=== PATIENT | female | born 1945 | race Caucasian/White ===

== ENCOUNTER → 2022-08-30 10:46 | Outpatient (CLI) | payer MEDICARE, BC, SELFPAY ==
--- NOTE | 2022-08-30 | DI.MRI.S_ITS ---
PROCEDURE: MR LUMBAR SPINE WO CON INDICATIONS: Radiculopathy, lumbosacral region TECHNIQUE: Noncontrast sagittal T1 spin echo and T2 fast echo, sagittal STIR, and T2 fast spin echo through the lumbar spine. In cases with scoliosis, additional coronal T2 fast spin echo may be performed. COMPARISON: None. FINDINGS: Image quality: Diagnostic. Susceptibility artifacts from lumbar spine fusion hardware are seen. Alignment and Curvature: There is 6 mm retrolisthesis of L1 on L2 and 8 mm retrolisthesis of T12 on L1. 5 mm anterolisthesis of L4 on L5 is also seen. Bone Marrow: Patient is status post posterior fusion and laminectomy at L3-4 and L4-5 levels. Susceptibility artifacts are seen. No gross marrow edema. No acute compression fracture. Spinal Cord: Conus medullaris terminates at the T12-L1 level. Visualized cord demonstrates normal signal and size. Paraspinous Soft Tissues: No paravertebral masses. T12-L1: There is loss of disc height and disc signal. Moderate degenerative endplate changes are seen. Prominent dorsal disc osteophyte complex formation causing moderate central canal stenosis is seen. Right worse than left bilateral neural foraminal narrowing is also noted. L1-L2: Loss of disc height and disc signal is seen. Degenerative endplate changes also noted. There is broad-based disc bulge and bilateral facet arthrosis causing mild central canal stenosis and moderate to severe bilateral neural foraminal narrowing. L2-L3: Loss of disc signal is seen. Broad-based disc bulge and bilateral facet hypertrophic changes are noted with moderate bilateral neural foraminal narrowing. No significant canal stenosis. L3-L4: Postsurgical changes are noted. No significant canal stenosis or neural foraminal narrowing. L4-L5: Postsurgical changes are seen. No significant canal stenosis or neural foraminal narrowing. L5-S1: There is loss of disc signal. Diffuse disc bulge and bilateral facet arthrosis is seen with mild bilateral neural foraminal narrowing and central canal stenosis. IMPRESSION: 1. Prior laminectomy and posterior fusion at L3-4 and L4-5 levels. Grade 1 spondylolisthesis at T12-L1, L1-2 and L4-5 levels as above. No gross marrow edema. No acute compression fracture. 2. Degenerative disc bulge and bilateral facet arthrosis at T12-L1 through L2-3 levels causing [id number] central canal stenosis and moderate to severe bilateral neural foraminal narrowing as described above. 3. No gross paraspinous soft tissue abnormalities. Dictated by: Panchito Redding M.D. on 09/01/2022 at 15:38 Approved by: Panchito Redding M.D. on 09/01/2022 at 16:01
== END ==
PROVIDERS: PCP Nurse Practitioner Family; Referring Provider Nurse Practitioner Family; Visit Provider Nurse Practitioner Family
DX: M43.15 Spondylolisthesis, thoracolumbar region (principal); M43.16 Spondylolisthesis, lumbar region; M51.15 Intervertebral disc disorders with radiculopathy, thoracolumbar region; M51.16 Intervertebral disc disorders with radiculopathy, lumbar region; M47.25 Other spondylosis with radiculopathy, thoracolumbar region; M47.26 Other spondylosis with radiculopathy, lumbar region; M48.061 Spinal stenosis, lumbar region without neurogenic claudication; M48.05 Spinal stenosis, thoracolumbar region; M25.552 Pain in left hip; Z98.1 Arthrodesis status
CPT/HCPCS: 72148